=== PATIENT | female | born 1970 | race Caucasian/White ===

== ENCOUNTER → 2017-05-18 | Outpatient (CLI) | payer OTHER ==
[~2017-05-18] MED LIST: ALPR.25; AMOX1XR PO; BIRTH CONTROL PILLS; BUPR100; CELE200; CODGUAEL PO; HYDACE5 PO; LAMZIDT; MULVITMIND; NELF250; RXHYDACE PO
[2017-05-20 12:03] LABS: HPV Genotype 16 Not Detected (NOTDET); HPV Genotype 18 Not Detected (NOTDET)
[2017-05-26 17:29] LABS: HPV High Risk Other Not Detected (NOTDET)
== END | disposition home or self-care (01) ==
LOC: LAB SHORT 14:49 → OLS 14:49
PROVIDERS: Nurse Practitioner Women's Health
DX: Z12.4 Encounter for screening for malignant neoplasm of cervix (principal); Z91.89 Other specified personal risk factors, not elsewhere classified
CPT/HCPCS: 87624; G0123

== ENCOUNTER 2018-05-14 03:12 | Emergency (ER) | payer OTHER ==
[~2018-05-14] VITALS: Ht 157.5 cm; Wt 68.0 kg
[2018-05-14 04:01] LABS: BASOPHILS ABSOLUTE AUTO 0.04 K/mm3 (0.00-0.23); BASOPHILS PERCENT AUTO 0 % (0-2); EOSINOPHILS ABSOLUTE AUTO 0.11 K/mm3 (0.00-0.68); EOSINOPHILS PERCENT AUTO 1 % (0-6); Hematocrit 45.9 % (33.0-51.0); Hemoglobin 14.9 g/dL (11.5-16.0); IMMATURE GRAN ABSOLUTE AUTO 0.02 K/mm3 (0.00-0.10); IMMATURE GRAN PERCENT AUTO 0 % (0-1); LYMPHOCYTES ABSOLUTE AUTO 4.45 K/mm3 (0.84-5.20); LYMPHOCYTES PERCENT AUTO 40 % (21-46); MONOCYTES ABSOLUTE AUTO 0.72 K/mm3 (0.16-1.47); MONOCYTES PERCENT AUTO 7 % (4-13); Mean Corpuscular HGB 28.9 pg (26.0-34.0); Mean Corpuscular HGB Conc 32.5 g/dL (31.5-36.5); Mean Corpuscular Volume 89 fL (80-100); Mean Platelet Volume 11.2 fL (9.1-12.4); NEUTROPHILS ABSOLUTE AUTO 5.72 K/mm3 (1.96-9.15); NEUTROPHILS PERCENT AUTO 52 % (41-73); Platelet Count 204 K/mm3 (150-400); RDW Coefficient Variation 13.1 % (11.7-14.2); Red Blood Cell Count 5.16 M/mm3 (3.80-5.20); White Blood Cell Count 11.06 K/mm3 (4.00-11.30)
[2018-05-14 04:50] LABS: Alanine Aminotransfer (ALT/SGP 22 U/L (12-78); Albumin, Blood 3.3 g/dL (3.4-5.0); Albumin/Globulin Ratio 0.8 (0.8-1.8); Alk Phos 75 U/L (50-136); Anion Gap 11 mmol/L (6-16); Aspartate Aminotrans (AST/SGOT 17 U/L (12-37); Bilirubin, Total 0.3 mg/dL (0.1-1.0); Blood Urea Nitrogen 8 mg/dL (8-24); CO2, Blood 20 mmol/L (21-32); Calcium, Blood 8.7 mg/dL (8.5-10.1); Chloride, Blood 112 mmol/L (98-108); Creatinine, Blood 0.89 mg/dL (0.40-1.00); Ethanol (Alcohol), Blood, Med <3 mg/dL; Glomerular Filtration Rate >60 (60-); Glucose, Blood 109 mg/dL (70-99); Magnesium, Blood 2.2 mg/dL (1.6-2.4); Potassium, Blood 3.5 mmol/L (3.5-5.5); Sodium, Blood 143 mmol/L (136-145); Total Protein, Blood 7.3 g/dL (6.4-8.2); Troponin I <0.015 ng/mL (0.000-0.040)
== END 2018-05-14 04:55 | disposition home or self-care (01) ==
LOC: ER 03:12
PROVIDERS: Emergency Medicine
DX: R10.13 Epigastric pain (principal); F41.9 Anxiety disorder, unspecified; Z88.1 Allergy status to other antibiotic agents; Z79.899 Other long term (current) drug therapy; Z79.891 Long term (current) use of opiate analgesic; B20 Human immunodeficiency virus [HIV] disease
CPT/HCPCS: 36415; 80053; 83605; 83690; 83735; 84484; 85025; 93005; 93010; 99285-25; G0480

== ENCOUNTER → 2018-05-25 | Outpatient (CLI) | payer OTHER ==
[2018-05-26 16:07] LABS: HPV 16 Negative (Negative); HPV 18 Negative (Negative); HPV OTHER HR TYPES Negative (Negative)
== END | disposition home or self-care (01) ==
LOC: LAB 12:30 → LAB SHORT 12:30
PROVIDERS: Nurse Practitioner Women's Health
DX: Z12.4 Encounter for screening for malignant neoplasm of cervix (principal)
CPT/HCPCS: 87624; G0123

== ENCOUNTER 2021-06-13 03:52 | Observation (INO) | payer OTHER ==
[~2021-06-13] VITALS: Ht 157.5 cm; Wt 85.1 kg
[2021-06-13 04:16] LABS: BASOPHILS ABSOLUTE AUTO 0.04 K/mm3 (0.00-0.23); BASOPHILS PERCENT AUTO 0 % (0-2); EOSINOPHILS ABSOLUTE AUTO 0.06 K/mm3 (0.00-0.68); EOSINOPHILS PERCENT AUTO 0 % (0-6); Hematocrit 42.9 % (33.0-51.0); Hemoglobin 14.1 g/dL (11.5-16.0); IMMATURE GRAN ABSOLUTE AUTO 0.05 K/mm3 (0.00-0.10); IMMATURE GRAN PERCENT AUTO 0 % (0-1); LYMPHOCYTES PERCENT AUTO 16 % (21-46); MONOCYTES ABSOLUTE AUTO 0.78 K/mm3 (0.16-1.47); MONOCYTES PERCENT AUTO 5 % (4-13); Mean Corpuscular HGB 28.6 pg (26.0-34.0); Mean Corpuscular HGB Conc 32.9 g/dL (31.5-36.5); Mean Corpuscular Volume 87 fL (80-100); Mean Platelet Volume 10.4 fL (9.1-12.4); NEUTROPHILS ABSOLUTE AUTO 12.63 K/mm3 (1.96-9.15); NEUTROPHILS PERCENT AUTO 78 % (41-73); Platelet Count 330 K/mm3 (150-400); RDW Coefficient Variation 13.2 % (11.7-14.2); RDW Standard Deviation 42.2 fL (35.1-46.3); Red Blood Cell Count 4.93 M/mm3 (3.80-5.20); White Blood Cell Count 16.16 K/mm3 (4.00-11.30)
[2021-06-13] MEDS ORDERED: BIKTARVY 30-121 EACH PO (04:26)
[2021-06-13] MEDS ORDERED: PERCOCET 10-321 EA10 PO (04:26)
[2021-06-13] MEDS ORDERED: FAMO20 PO (04:26)
[2021-06-13 04:31] LABS: Albumin, Blood 3.2 g/dL (3.4-5.0); Albumin/Globulin Ratio 0.8 (0.8-1.8); Bilirubin, Total 0.4 mg/dL (0.1-1.0); Bun/Creatinine Ratio 11.3 (12.0-20.0); Calcium, Blood 8.6 mg/dL (8.5-10.1); Creatinine, Blood 1.15 mg/dL (0.40-1.00); Globulin, Blood 4.1 g/dL (2.2-4.0); Potassium, Blood 3.5 mmol/L (3.5-5.5); Total Protein, Blood 7.3 g/dL (6.4-8.2)
--- NOTE | 2021-06-13 10:31 | NUR ---
ER ADMISSION Pt arrived from the ER this morning via w/c. She was able to self ambulate to the bed and around the room. She denied and pain. She is a/o x 4 and independent in the room. Her VS are stable and her IV fluids were started as ordered. She verbalized an understanding of the use of the call light and has it in reach. She is sleeping now awaiting word from the doctor.
[2021-06-13 10:50] LABS: Source, Urine Clean Catch
[2021-06-13 10:53] LABS: Bilirubin, Urine Neg (Neg); Blood, Urine 2+ (Neg); Glucose Qualitative, Urine Neg (Neg); Ketones, Urine Neg (Neg); Leukocyte Esterase, Urine Neg (Neg); Nitrite, Urine Neg (Neg); Protein, Urine Neg (Neg); Urobilinogen, Urine NORM (Normal)
[2021-06-13 11:06] LABS: Appearance, Urine Clear (Clear); Color, Urine Yellow (P-Yellow)
[2021-06-13 11:07] LABS: Bacteria Not Seen /hpf; Red Blood Cells, Urine 0-2 /hpf (0-2); Squamous Epithelial Cells Rare /hpf (Few); White Blood Cells, Urine Not Seen /hpf (0-5)
--- NOTE | 2021-06-13 13:49 | NUR ---
THE PATIENT WAS BROUGHT TO DAY SURGERY FOR HER PROCEDURE.
--- NOTE | 2021-06-13 16:55 | NUR ---
SHIFT SUMMARY Pt remains a/o x 4. She napped until the day surgery nurse came to get her this afternoon. She returned from the PACU this donna and is resting in bed s/p lap alvarez. She has steri strips and a gauze pad on the lap sites to her abodemen. She has no c/o pain at this time. She has texted her to update him and he should be in soon to see her. She has her call light in reach and is able to make her needs known.
--- NOTE | 2021-06-14 06:19 | NUR ---
SUMMARY PT HAS SLEPT WELL TONIGHT.REPORTS ADEQUATE PAIN CONTROL. REFUSED AM LAB DRAW
[2021-06-14] MEDS ORDERED: HYDR1TAB94 PO (10:00)
--- NOTE | 2021-06-14 10:59 | NUR ---
DISCHARGE NOTE: PATIENT WAS EDUCATED ON DISCHARGE INSTRUCTIONS. PATIENT VERBALIZED UNDERSTANDING OF INSTRUCTIONS. HARD PERSCRIPTION IS IN INSTRUCTIONS FOLDER. IV WAS TAKEN OUT AND WNL. PAIN IS MANAGED WITH PO PAIN MEDICATIONS. HER ABD LAP SITES ARE C/D/I. SHE IS TOLERATING PO INTAKE AND IS VOIDING. PATIENT IS DRESSED AND HAS ITEMS IN THE ROOM GATHERED. SHE IS WAITING FOR HER RIDE TO GET HER TO TAKE HER HOME. PATIENT REPORTED WANTING TO WALK OUT ON HER OWN.
== END 2021-06-14 11:18 | disposition home or self-care (01) ==
LOC: ER 03:52 → SURS 03:53 → ER 03:53 → SURS 03:54
PROVIDERS: Emergency Medicine; Surgery; ADMIT Internal Medicine
PROC: BF03YZZ Plain Radiography of Gallbladder and Bile Ducts using Other Contrast (ICD-10-PCS; principal; 2021-06-13 13:30)
PROC: 0FT44ZZ Resection of Gallbladder, Percutaneous Endoscopic Approach (ICD-10-PCS; principal; 2021-06-13 13:30)
DX: K80.12 Calculus of gallbladder with acute and chronic cholecystitis without obstruction (principal); F17.210 Nicotine dependence, cigarettes, uncomplicated; D72.829 Elevated white blood cell count, unspecified; N28.9 Disorder of kidney and ureter, unspecified; I49.8 Other specified cardiac arrhythmias; Z88.5 Allergy status to narcotic agent; Z21 Asymptomatic human immunodeficiency virus [HIV] infection status; Z79.899 Other long term (current) drug therapy; Z88.1 Allergy status to other antibiotic agents
CPT/HCPCS: 74300; 76705; 80053; 81001; 83690; 84484; 85025; 93005; 93010; 96365; 96375; 96376; 99285-25; A9270; C1729; G0378; J0295; J1100; J1885; J2250; J2270; J2370; J2405; J2704; J3010; J7030; J7050; J7120

== ENCOUNTER → 2023-01-07 | Outpatient (CLI) | payer OTHER ==
[~2023-01-07] MED LIST changes: +BIKTARVY 30-121 EACH PO; +FAMO20 PO; +HYDR1TAB94 PO; +PERCOCET 10-321 EA10 PO
[2023-01-12 11:11] LABS: HPV 16 Negative (Negative); HPV 18 Negative (Negative); HPV OTHER HR TYPES Negative (Negative)
== END ==
LOC: LAB 16:38 → LAB SHORT 16:38
PROVIDERS: Obstetrics & Gynecology
DX: Z01.419 Encounter for gynecological examination (general) (routine) without abnormal findings (principal)
CPT/HCPCS: 87624; G0145

== ENCOUNTER 2023-02-24 11:14 | Day surgery (SDC) | payer OTHER ==
[~2023-02-24] VITALS: Ht 157.5 cm; Wt 87.0 kg
[2023-02-24] MEDS ORDERED: TIZA4 PO (11:45)
--- NOTE | 2023-02-24 13:48 | NUR ---
02/24/23 1348 Traci Guerrero 1,000 NACL FLUID DEFICIT FROM HYSTEROSCOPY
--- NOTE | 2023-02-24 14:21 | NUR ---
02/24/23 1421 AGGIE JULIAN PT REFUSED FENTANYL IN PACU. STATED THAT IT DOESN'T WORK. DILAUDID WAS GIVEN 1MG TOTAL. NOW PT WOULD LIKE TO TRY FENTANYL FOR PAIN 10/02
[2023-02-24 15:01] VITALS: BP 109/80
== END 2023-02-24 15:25 | disposition home or self-care (01) ==
LOC: ORSCSDS 11:14
PROVIDERS: Obstetrics & Gynecology
PROC: 0UDB8ZX Extraction of Endometrium, Via Natural or Artificial Opening Endoscopic, Diagnostic (ICD-10-PCS; principal; 2023-02-24 12:30)
PROC: 0UH97HZ Insertion of Contraceptive Device into Uterus, Via Natural or Artificial Opening (ICD-10-PCS; principal; 2023-02-24 12:30)
DX: N95.0 Postmenopausal bleeding (principal); N71.9 Inflammatory disease of uterus, unspecified; Z21 Asymptomatic human immunodeficiency virus [HIV] infection status; Z30.430 Encounter for insertion of intrauterine contraceptive device; F17.210 Nicotine dependence, cigarettes, uncomplicated
CPT/HCPCS: 88305; A9270; J1100; J1170; J2250; J2371; J2405; J2704; J3010; J7120; J7297

== ENCOUNTER 2024-05-30 10:13 | Day surgery (SDC) | payer OTHER ==
[~2024-05-30] VITALS: Ht 157.5 cm; Wt 83.1 kg
[~2024-05-30 10:13] MED LIST changes: +NS 500 ML IV ONE; +TIZA4 PO
[2024-05-30] MEDS ORDERED: Midazolam HCl 1MG / ML 2ML Vial ONE (10:23)
[2024-05-30] MEDS ORDERED: propofoL 20 ML IV ONE (10:34)
[2024-05-30] MEDS ORDERED: albuterol sulfate HF (10:49)
[2024-05-30] MEDS ORDERED: COMBIVENT RESPIM4 G1 (10:49)
[2024-05-30] MEDS ORDERED: OXYC10TA19 (10:49)
[2024-05-30] MEDS ORDERED: PANTOPRAZOLE SO40 M2 (10:50)
[2024-05-30] MEDS ORDERED: PREGABALIN100 MG (10:51)
[2024-05-30] MEDS ORDERED: Lidocaine HCl 2% 10 ML SDA ONE (11:03)
[2024-05-30] MEDS ORDERED: NS 500 ML IV ONE (11:04)
--- NOTE | 2024-05-30 11:07 | NUR ---
05/30/24 1107 Daisy Keating IODINE SKIN TEST DONE ON LEFT FOREARM AT 1044. RECHECKED LEFT FORARM AT 1106, SKIN IS INTACT W/O REDNESS.
[2024-05-30] MEDS ORDERED: Lidocaine 1%-Epineph 1:200000 30 ML SDV INJ ONE (11:25)
[2024-05-30 11:46] VITALS: BP 101/65
== END 2024-05-30 12:06 | disposition home or self-care (01) ==
LOC: ORSCSDS 10:13
PROVIDERS: Orthopaedic Surgery
PROC: 01N54ZZ Release Median Nerve, Percutaneous Endoscopic Approach (ICD-10-PCS; principal; 2024-05-30 12:00)
PROC: 0LN70ZZ Release Right Hand Tendon, Open Approach (ICD-10-PCS; 2024-05-30 12:00)
DX: G56.03 Carpal tunnel syndrome, bilateral upper limbs (principal); M65.331 Trigger finger, right middle finger; M65.341 Trigger finger, right ring finger; J45.909 Unspecified asthma, uncomplicated; K21.9 Gastro-esophageal reflux disease without esophagitis; B20 Human immunodeficiency virus [HIV] disease; F32.A Depression, unspecified; F41.9 Anxiety disorder, unspecified; Z86.73 Personal history of transient ischemic attack (TIA), and cerebral infarction without residual deficits; Z87.891 Personal history of nicotine dependence; Z79.899 Other long term (current) drug therapy
CPT/HCPCS: J2003; J2250; J2704; J7040